=== PATIENT | female | born 1950 | race Caucasian/White ===

== ENCOUNTER 2023-12-04 09:21 | Day surgery (SDC) | payer MEDICARE, OTHER, SELFPAY ==
--- NOTE | 2023-12-04 | PATH_ITS ---
[facility] Accession Number: [id number] No. of containers..01 Tissue . 01 Material submitted: . colon - ASCENDING COLON POLYP . 01 Diagnosis: ASCENDING COLON POLYP: Tubular adenoma. STO 12/06/2023 1402 Local . 01 Electronically signed: . Andrade Elliott MD, Pathologist NPI- [id number] . 01 Gross description: . ASCENDING COLON POLYP: Received in formalin is 1 fragment(s) of dukes, soft tissue measuring 0.5 x 0.3 x 0.3 cm submitted entirely in 1 cassette(s) /YOJANA 12/06/2023 1402 Local . 01 Pathologist provided ICD-10: D12.2 . 01 CPT . 846930 Specimen Comment: A courtesy copy of this report has been sent to [phone] Performed at: 01 [facility] [address] [place] [address], [place], [place] [id number] MD Andrade Elliott MD Phone: [phone]
--- NOTE | 2023-12-04 10:07 | PM.HP.1 ---
History of Present Illness History of Present Illness Date Patient Seen: 12/04/23 Chief complaint: SDC Narrative: Ten year follow-up colonoscopy Meds Home Medications and Allergies Allergies Allergy/AdvReac Type Severity Reaction Status Date / Time penicillin G Allergy Rash Verified 12/04/23 10:03 Exam Narrative Exam Narrative: Oropharynx free of lesions Chest clear to auscultation percussion Cardiac exam reveals no S3 or murmur Assessment & Plan Assessment & Plan narrative: Ten year follow-up colonoscopy. Risks, benefits, alternatives have been explained.
--- NOTE | 2023-12-04 10:07 | PM.OP.COLON ---
Operative Date/Time/Diagnoses Date of procedure: 12/04/23 Pre-op diagnosis: See indication and findings Procedure & Clinicians Study performed: Colonoscopy Indications: 10 year follow-up screening Surgeon: Sharda Aldana Procedure Notes Procedure in detail: After informed consent was obtained the patient was placed in left lateral decubitus position. The video colonoscope was introduced the rectum slowly advanced cecum. On slow withdrawal mucosa was carefully examined. The scope was removed. The patient tolerated procedure well. Blood loss none Complications none Sedation mac Findings 1. 5 mm colon polyp in the ascending colon cold snared and removed completely 2. Otherwise negative colonoscopy to cecum Will be in touch regarding the biopsies. The findings may suggest the need for follow-up colonoscopy in 5 years if in excellent
[2023-12-04 10:14] VITALS: BP 151/88; PULSE 89; RESP 16; TEMP 36.3; O2SAT 100
[2023-12-04] MEDS: LACTATED RINGERS 1,000 ML 100 ML IV (10:21)
[2023-12-04 11:14] VITALS: BP 106/59; PULSE 82; RESP 20; TEMP 36.9; O2SAT 97
[2023-12-04 11:19] VITALS: BP 110/59; PULSE 80; RESP 16; O2SAT 97
[2023-12-04 11:25] VITALS: BP 120/73; PULSE 67; RESP 16; O2SAT 98
[2023-12-04 11:33] VITALS: BP 134/77; PULSE 63; RESP 16; TEMP 36.6; O2SAT 100
== END 2023-12-04 11:42 | disposition home or self-care (01) ==
PROVIDERS: PCP Physician Assistant; Referring Provider Internal Medicine Gastroenterology; Visit Provider Internal Medicine Gastroenterology
PROC: 0DJD8ZZ Inspection of Lower Intestinal Tract, Via Natural or Artificial Opening Endoscopic (ICD-10-PCS; CPT 45378; principal; 2023-12-04 11:00)
DX: Z12.11 Encounter for screening for malignant neoplasm of colon (principal); D12.2 Benign neoplasm of ascending colon
CPT/HCPCS: 45385; J2704